=== PATIENT | male | born 1955 | race Caucasian/White ===

== ENCOUNTER 2017-02-25 13:18 | Emergency (ER) | payer OTHER ==
[2017-02-25 13:26] VITALS: RESP 16
--- NOTE | 2017-02-25 14:11 | EDPHY ---
H & P Stated Complaint: 4ft fall Time Seen by Provider: 02/25/17 14:03 HPI/ROS: CHIEF COMPLAINT: Concussion HISTORY OF PRESENT ILLNESS: The patient is a 62-year-old man who stepped off the back of a 3 foot high deck last night. He hit the right side of his body. He thinks he loss consciousness but is not sure. Since then he has had a mild headache and feels extremely dizzy if he moves his head quickly or stands up quickly. No nausea vomiting. He states that is similar to a concussion he had in 6th grade. He also had complains of right shoulder pain. He has an abrasion to his deltoid muscle. He has pain with passive range of motion does with active. He also has an abrasion to his right hip that he is not concerned about. REVIEW OF SYSTEMS: Constitutional: denies: chills, fever, recent illness, recent injury EENTM: denies: blurred vision, double vision, nose congestion Respiratory: denies: cough, shortness of breath Cardiac: denies: chest pain, irregular heart rate, lightheadedness, palpitations Gastrointestinal/Abdominal: denies: abdominal pain, diarrhea, nausea, vomiting, blood streaked stools Genitourinary: denies: dysuria, frequency, hematuria, pain Musculoskeletal: See HPI Skin: denies: lesions, rash, jaundice, bruising Neurological: denies: headache, numbness, paresthesia, tingling, dizziness, weakness Hematologic/Lymphatic: denies: blood clots, easy bleeding, easy bruising Immunologic/allergic: denies: HIV/AIDS, transplant EXAM: GENERAL: Well-appearing, well-nourished and in no acute distress. HEAD: Atraumatic, normocephalic. EYES: Pupils equal round and reactive to light, extraocular movements intact, sclera anicteric, conjunctiva are normal. ENT: TMs normal, nares patent, oropharynx clear without exudates. Moist mucous membranes. NECK: Normal range of motion, supple without lymphadenopathy or JVD. LUNGS: Breath sounds clear to auscultation bilaterally and equal. No wheezes rales or rhonchi. HEART: Regular rate and rhythm without murmurs, rubs or gallops. ABDOMEN: Soft, nontender, normoactive bowel sounds. No guarding, no rebound. No masses appreciated. BACK: No CVA tenderness, no spinal tenderness, step-offs or deformities EXTREMITIES: Right shoulder pain, abrasion, no pain passive range of motion. Pain with elevation of shoulder anterior lateral. Abrasion to right hip, no tenderness or deformity. Ambulating without difficulty NEUROLOGICAL: Cranial nerves II through XII grossly intact. Normal speech, normal gait. 5/5 strength, normal movement in all extremities, normal sensation PSYCH: Normal mood, normal affect. SKIN: Warm, dry, normal turgor, no visible rashes or lesions. Source: Patient Exam Limitations: No limitations - Personal History Current Tetanus Diphtheria and Acellular Pertussis (TDAP): Unsure - Medical/Surgical History Hx Asthma: No Hx Chronic Respiratory Disease: No Hx Diabetes: Yes Hx Cardiac Disease: No Hx Renal Disease: No Hx Cirrhosis: No Hx Alcoholism: No Other PMH: DMI - Family History Significant Family History: No pertinent family hx - Social History Smoking Status: Never smoked Alcohol Use: Sober Drug Use: None Constitutional: Initial Vital Signs Heart Rate 62 02/25/17 13:23 Respiratory Rate 16 02/25/17 13:23 Blood Pressure 152/85 H 02/25/17 13:23 O2 Sat (%) 96 02/25/17 13:23 O2 Delivery Mode Room Air Allergies/Adverse Reactions: bee venom protein (honey bee) Allergy (Verified 02/25/17 13:27) Home Medications: Medication Instructions Recorded Apidra 02/25/17 Benazepril HCl 02/25/17 Fluticasone Nasal 02/25/17 Humulin N 02/25/17 Levemir 02/25/17 Medical Decision Making - Diagnostics Imaging Results: Imaging Impressions Shoulder X-Ray 02/25/17 14:03 Impression: 1. Acute minimally displaced fracture of lateral aspect of acromion. 2. Suspect degenerative changes distal right clavicle rather than acute fracture. Head CT 02/25/17 14:09 Impression: 1. No acute abnormalities. 2. Minimal left ethmoid and frontal sinus disease. Dr. Pratt discussed these findings by telephone with Dr. MYLENE APPIAH on at 14:38 hours. Imaging: Discussed imaging studies w/ life insurance salesperson Radiologist Procedures: Procedure: Splint placement. A sling was applied. After application of the splint I returned and re- examined the patient. The splint was adequately immobilizing the joint and distal to the splint the patient's circulation and sensation was intact. ED Course/Re-evaluation: We discussed the patient's CT and x-ray results. We discussed follow-up with Orthopedics. He has an appoint with Dr. Garcia in 2 weeks. I will also refer him to Dr. Young who is on-call. We discussed concussion protocol and return to activity. He is are happy with this and declines further workup or testing at this time. Differential Diagnosis: Partial list of the Differential diagnosis considered include but were not limited to; shoulder injury, abrasion, contusion, concussion, intracranial injury and although unlikely based on the history and physical exam, I also considered infection, clavicle fracture. I discussed these differential diagnoses and the plan with the patient as well as the usual and expected course. The patient understands that the diagnosis is provisional and that in medicine we are not always correct and that further workup is often warranted. Usual and customary warnings were given. All of the patient's questions were answered. The patient was instructed to return to the emergency department should the symptoms at all worsen or return, otherwise to followup with the physician as we discussed. Departure - Departure Disposition: Home, Routine, Self-Care Clinical Impression: Concussion Qualifiers: Encounter type: initial encounter Loss of consciousness presence/duration: without LOC Qualified Code(s): S06.0X0A - Concussion without loss of consciousness, initial encounter Fracture of acromion of scapula Qualifiers: Encounter type: initial encounter Fracture type: closed Fracture alignment: displaced Laterality: right Qualified Code(s): S42.121A - Displaced fracture of acromial process, right shoulder, initial encounter for closed fracture Condition: Fair Instructions: Concussion (ED), Shoulder Pain (ED) Referrals: BOUBACAR CRUZ [Primary Care Provider] - As per Instructions Ace Parsons MD [Medical Doctor] - As per Instructions Evy Harrison MD [Medical Doctor] - As per Instructions
[2017-02-25 15:36] VITALS: BP 130/77; PULSE 74; O2SAT 94
== END 2017-02-25 15:35 | disposition home or self-care (01) ==
DX: S06.0X0A Concussion without loss of consciousness, initial encounter (principal); S42.121A Displaced fracture of acromial process, right shoulder, initial encounter for closed fracture; E11.9 Type 2 diabetes mellitus without complications; Z79.4 Long term (current) use of insulin; Z91.030 Bee allergy status; W22.8XXA Striking against or struck by other objects, initial encounter
CPT/HCPCS: A4565